=== PATIENT | female | born 1925 | race Caucasian/White ===

== ENCOUNTER 2017-01-01 18:02 | Emergency (ER) | payer MEDICARE, OTHER ==
[~2017-01-01] VITALS: Ht 152.4 cm; Wt 80.7 kg
[2017-01-01] MEDS ORDERED: AVAP75TA PO (18:27)
[2017-01-01] MEDS ORDERED: vitamin D (18:27)
[2017-01-01] MEDS ORDERED: CHEW500C2 PO (18:27)
[2017-01-01 21:53] LABS: CALCIUM LEVEL 8.7 MG/DL (8.8-10.2); CREATININE FOR GFR 2.21 MG/DL (0.55-1.02); GLOMERULAR FILTRATION RATE 22.3 (>32)
[2017-01-01 21:57] LABS: POTASSIUM SERUM 5.2 MEQ/L (3.5-5.1)
[2017-01-01 22:00] LABS: INR 1.11
[2017-01-01 22:08] LABS: DIFF SLIDE NUMBER 324; MEAN CORPUSCULAR HEMOGLOBIN 29.5 pg (27.0-33.0); MEAN CORPUSCULAR HGB CONC 32.2 g/dl (32.0-36.5); MEAN CORPUSCULAR VOLUME 91.9 fl (80.0-96.0); PLATELET COUNT, AUTOMATED 213 k/mm3 (150-450); WHITE BLOOD COUNT 10.6 K/mm3 (4.0-10.0)
[2017-01-01] MEDS ORDERED: DILUENT IV ONE (22:15)
[2017-01-01] MEDS ORDERED: CLINDAMYCIN IV ONE ×2 (22:15→22:20)
[2017-01-01] MEDS ORDERED: D5W IV ONE (22:20)
--- NOTE | 2017-01-01 22:20 | REPUSA ---
CLINICAL HISTORY: Edema. COMMENTS: Real time sonography with duplex doppler of the left lower extremity was performed with attention to the major deep venous structures. Evaluation reveals the left common femoral, superficial femoral and popliteal veins to be completely compressible without intraluminal thrombus. There is normal spontaneous phasic flow and augmentation. The greater saphenous/common femoral vein junction is patent. IMPRESSION: No evidence of DVT in left lower extremity.. Thank you for your kind referral of this patient.
[2017-01-01 22:43] LABS: BASOPHILS 2 % (0-4)
[2017-01-01 22:44] LABS: PLATELET CLUMPS SMALL AMT
[2017-01-01] MEDS ORDERED: CLIN1CAP5 PO (23:20)
[2017-01-01 23:44] VITALS: BP 129/59
--- NOTE | 2017-01-02 08:10 | REP ---
Clinical: Shortness of breath . Comparison: 05/26/2007 . Findings: The mediastinum and cardiac silhouette are stable and within normal limits for portable technique. The lung malone demonstrate chronic changes without acute consolidation, effusion, or pneumothorax. Skeletal structures are intact. Impression: Chronic stable changes. Signed by Aly Thurston MD 01/02/2017 08:02 A
== END 2017-01-02 00:28 | disposition home or self-care (01) ==
LOC: M ED 19:07
DX: J02.9 Acute pharyngitis, unspecified (principal); L03.116 Cellulitis of left lower limb; I10 Essential (primary) hypertension; Z79.899 Other long term (current) drug therapy

== ENCOUNTER 2017-01-15 18:07 | Emergency (ER) | payer MEDICARE, OTHER ==
[~2017-01-15] VITALS: Ht 152.4 cm; Wt 78.5 kg
[~2017-01-15 18:07] MED LIST: AVAP75TA PO; CHEW500C2 PO; CLIN1CAP5 PO; vitamin D
[2017-01-15] MEDS ORDERED: CEPH500C (18:16)
[2017-01-15 21:13] VITALS: BP 120/70
--- NOTE | 2017-01-16 09:24 | REP ---
PA LATERAL CHEST: 01/15/2017. Comparison: Portable chest 01/01/2017, two-view chest 05/26/2007. Clinical history: Cough. Findings: Two-views show the lungs hyperinflated. Some minor interstitial fibrotic changes of COPD. The pulmonary arteries are mildly prominent. There is no effusion, infiltrate, atelectasis or mass. Heart is not enlarged. Aorta is calcified, tortuous and ectatic but without change. Airway intact. No pulmonary edema or definite effusion. Bones demineralized with degenerative changes of the shoulder and spine. No free air. Impression: 1. COPD and some fibrosis with pulmonary artery hypertension. No definite infiltrate, effusion, atelectasis or mass. No cardiomegaly or edema. 2. Tortuous calcified aorta. Stable exam. Signed by Floyd Arnold MD 01/16/2017 02:53 P
== END 2017-01-15 21:16 | disposition home or self-care (01) ==
LOC: M ED 20:59
DX: R05 Cough (principal); I10 Essential (primary) hypertension; J02.0 Streptococcal pharyngitis; L03.90 Cellulitis, unspecified; J44.9 Chronic obstructive pulmonary disease, unspecified; I27.89 Other specified pulmonary heart diseases; I70.0 Atherosclerosis of aorta; Z79.899 Other long term (current) drug therapy

== ENCOUNTER → 2017-01-21 | Outpatient (CLI) | payer MEDICARE, OTHER ==
[~2017-01-21] MED LIST changes: +CEPH500C
[2017-01-21 10:09] LABS: BASO % 0.3 % (0.0-1.0); EOS # 0.3 K/mm3 (0.0-0.50); EOS % 2.7 % (0.0-3.0); LARGE UNSTAINED CELL # 0.1 K/mm3 (0.0-0.4); LARGE UNSTAINED CELL % 1.4 % (0.0-4.0); LYMPH # 1.3 K/mm3 (1.5-4.5); LYMPH % 12.6 % (24.0-44.0); MEAN CORPUSCULAR HEMOGLOBIN 29.9 pg (27.0-33.0); MEAN CORPUSCULAR HGB CONC 32.6 g/dl (32.0-36.5); MEAN CORPUSCULAR VOLUME 91.6 fl (80.0-96.0); MONO # 0.7 K/mm3 (0.0-0.8); MONO % 7.2 % (0.0-5.0); NEUTROPHILS # 7.5 K/mm3 (1.8-7.7); NEUTROPHILS % 75.8 % (36.0-66.0); PLATELET COUNT, AUTOMATED 274 k/mm3 (150-450); RED CELL DISTRIBUTION WIDTH 13.2 % (11.5-14.5); WHITE BLOOD COUNT 9.9 K/mm3 (4.0-10.0)
[2017-01-21 10:43] LABS: ALBUMIN 2.7 GM/DL (3.2-5.2); ALBUMIN/GLOBULIN RATIO 0.79 (1.00-1.93); BILIRUBIN,TOTAL 0.4 MG/DL (0.2-1.0); CALCIUM LEVEL 8.2 MG/DL (8.8-10.2); CREATININE FOR GFR 1.55 MG/DL (0.55-1.02); GLOMERULAR FILTRATION RATE 33.5 (>32); PERCENT SATURATION 9.5 % (13.2-37.4); POTASSIUM SERUM 4.6 MEQ/L (3.5-5.1); TOTAL PROTEIN 6.1 GM/DL (6.4-8.2)
== END ==
LOC: M LAB 09:02
PROVIDERS: ATTEND Family Medicine
DX: E53.8 Deficiency of other specified B group vitamins (principal); E78.5 Hyperlipidemia, unspecified; E55.9 Vitamin D deficiency, unspecified; Z79.899 Other long term (current) drug therapy
CPT/HCPCS: 36415; 80053; 80061; 82306; 82550; 82607; 82728; 83550; 83970; 85025; 86140; G0463